=== PATIENT | male | born 1955 | race Caucasian/White ===

== ENCOUNTER 2018-03-11 11:13 | Emergency (ER) | payer BC ==
[2018-03-11 12:06] LABS: #Basophils 0.1 thou/uL (0.0-0.2); #Eosinphils 0.1 thou/uL (0.0-0.7); #Lymphocytes 1.8 thou/uL (1.20-3.40); #Monocytes 0.6 thou/uL (0.11-0.59); #Neutrophils 4.2 thou/uL (1.40-6.50); %Basophils 1.1 % (0.0-1.0); %Eosinophils 2.2 % (0.0-10.0); %Lymphocytes 26.1 % (21.0-51.0); %Monocytes 8.5 % (0.0-10.0); Hemoglobin 14.8 g/dL (14.0-18.0); Mean Corpuscular HGB CONC 36.4 g/dL (32.0-36.0); Mean Corpuscular Hemoglobin 28.3 pg (27.0-31.0); Mean Corpuscular Volume 77.6 fL (78.0-98.0); Mean Platelet Volume 6.6 fL (7.4-10.4); Platelet Count 201 thou/uL (130-400); RBC Distribution Width 11.7 % (11.5-14.5); Red Blood Cell (RBC) Count 5.24 mill/uL (4.70-6.10); White Blood Cell (WBC) Count 6.7 thou/uL (4.8-10.8)
== END 2018-03-11 12:29 | disposition home or self-care (01) ==
LOC: BURERS 11:13
DX: K92.2 Gastrointestinal hemorrhage, unspecified (principal); Z71.6 Tobacco abuse counseling; E11.9 Type 2 diabetes mellitus without complications; E03.9 Hypothyroidism, unspecified; F17.210 Nicotine dependence, cigarettes, uncomplicated; Z79.899 Other long term (current) drug therapy; Z79.84 Long term (current) use of oral hypoglycemic drugs
CPT/HCPCS: 36415; 85025; 99406

== ENCOUNTER 2021-01-24 10:04 | Emergency (ER) | payer BC ==
[2021-01-24 10:25] LABS: #Basophils 0.1 thou/uL (0.0-0.2); #Eosinphils 0.1 thou/uL (0.0-0.7); #Lymphocytes 1.7 thou/uL (1.20-3.40); #Monocytes 0.4 thou/uL (0.11-0.59); #Neutrophils 3.6 thou/uL (1.40-6.50); %Eosinophils 1.4 % (0.0-10.0); %Lymphocytes 28.6 % (21.0-51.0); %Monocytes 6.9 % (0.0-10.0); Hemoglobin 16.5 g/dL (14.0-18.0); Mean Corpuscular HGB CONC 31.7 g/dL (32.0-36.0); Mean Corpuscular Hemoglobin 27.8 pg (27.0-31.0); Mean Corpuscular Volume 87.7 fL (78.0-98.0); Mean Platelet Volume 7.9 fL (7.4-10.4); Platelet Count 201 thou/uL (130-400); RBC Distribution Width 12.7 % (11.5-14.5); Red Blood Cell (RBC) Count 5.94 mill/uL (4.70-6.10); White Blood Cell (WBC) Count 5.8 thou/uL (4.8-10.8)
[2021-01-24 10:41] LABS: ALT (SGPT) 23 U/L (8-55); AST (SGOT) 12 U/L (5-34); Albumin 4.3 g/dL (3.4-4.8); Alkaline Phosphatase 83 U/L (40-110); Anion Gap 15 mmol/L (10-20); BUN (Urea Nitrogen) 14 mg/dL (8.4-25.7); Bilirubin, Total 0.5 mg/dL (0.2-1.2); Calc. Creatinine Clearance 0 mL/min (70-130); Calcium 9.3 mg/dL (7.8-10.44); Carbon Dioxide 23 mmol/L (23-31); Chloride 103 mmol/L (98-107); Globulin 2.7 g/dL (2.4-3.5); Glucose 193 mg/dL (80-115); Potassium 4.5 mmol/L (3.5-5.1); Sodium 136 mmol/L (136-145)
[2021-01-24 12:04] LABS: Troponin I Less than 0.010 ng/mL (< 0.028)
== END 2021-01-24 12:28 | disposition home or self-care (01) ==
LOC: BURERS 10:04
DX: R07.89 Other chest pain (principal); E11.9 Type 2 diabetes mellitus without complications; E03.9 Hypothyroidism, unspecified; F17.210 Nicotine dependence, cigarettes, uncomplicated; Z79.84 Long term (current) use of oral hypoglycemic drugs; Z79.899 Other long term (current) drug therapy
CPT/HCPCS: 36415; 71045; 80053; 83880; 84484; 85025; 93005